=== PATIENT | female | born 1980 | race Two or more races ===

== ENCOUNTER 2025-06-26 20:46 | Emergency (ER) | payer SELFPAY ==
[2025-06-26 21:01] VITALS: BP 158/94; PULSE 104; RESP 18; TEMP 36.9; O2SAT 99
--- NOTE | 2025-06-26 21:12 | PD.EDDENTL ---
ED Dental RME/HPI General Chief complaint: General Adult/Misc Complain Stated complaint: MOUTH /DENTAL PAIN Time Seen by Provider: 06/26/25 21:02 Arrival date/time: 06/26/25 20:46 RME / HPI RME / HPI Narrative: See [facility] for Dr. Beltrán's HPI Documentation. Related Data Home Medications ?Medication ?Instructions ?Recorded ?Confirmed esomeprazole magnesium 20 mg 20 mg PO QDAY ##0 01/05/17 capsule,delayed release (Nexium) Previous Rx's ?Medication ?Instructions ?Recorded ibuprofen 600 mg tablet 600 mg PO Q6HR PRN PAIN #30 tabs 01/05/17 tramadol 50 mg tablet (Ultram) 50 mg PO Q4HR PRN pain #14 tabs 01/05/17 acetaminophen 300 mg-codeine 30 mg 2 tab PO Q8H PRN pain #20 tabs 06/26/25 tablet amoxicillin 875 mg-potassium 1 tab PO BID #20 tabs 06/26/25 clavulanate 125 mg tablet Allergies Allergy/AdvReac Type Severity Reaction Status Date / Time No Known Allergies Allergy Verified 06/26/25 20:46 Review of Systems Review of Systems Systems Reviewed: All systems reviewed, normal except as documented Past Medical History Social History SMOKING STATUS: Never smoker ED Exam Narrative Physical exam: See [facility] for Dr. Beltrán's Physical Exam Documentation. Course Quality Measures none Orders Category Date Time Status ACETAMINOPHEN w/COD 300-30 [Tylenol w/Cod #3] Med 06/26/25 21:09 Discontinued 2 tab PO X1 ONE Amoxicillin/Pot Clav 875 [Augmentin 875] Med 06/26/25 21:09 Discontinued 1 tab PO X1 ONE Ibuprofen Tab [Motrin Tab] Med 06/26/25 21:09 Discontinued 800 mg PO X1 ONE predniSONE Med 06/26/25 21:09 Discontinued 60 mg PO X1 ONE Vital Signs Vital signs: Vital Signs Temperature 98.5 F 06/26/25 21:01 Pulse Rate 104 H 06/26/25 21:01 Respiratory Rate 18 06/26/25 21:01 Blood Pressure 158/94 H 06/26/25 21:01 Pulse Oximetry (%) 99 06/26/25 21:01 Oxygen Delivery Method Room Air 06/26/25 21:01 Dental / Oral MDM Narrative MDM Narrative:: This section includes all my notes and documentations, including HPI, PE, and ED course. Kale Beltrán MD HPI: 45 y/o female presents c/o right-sided dental pain and swelling x 1 month. No fever or chills. No other complaints. ROS: All negative except as documented in HPI. Physical Exam: General: Alert and oriented. Eyes: Conjunctivae and lids clear. ENT: No nasal congestion. Pharynx normal. TM normal bilaterally. In the mouth, diffuse dental caries noted. Right upper and lower gums significantly edematous and erythematous. No fluctuant mass palpable. Neck: Supple. Lungs: No respiratory distress. Skin: Warm and dry. Neuro: Alert and oriented X 3. At this point, diagnoses include: Infected Dental Caries Treatment here included: Tylenol with Codeine #3 X 2 Augmentin 875 mg Motrin 800 mg Prednisone 60 mg She started to feel better. Recommended outpatient dental care. Based on my best medical judgment, made decision no further evaluation or treatment indicated at this time. Patient understands and agrees to the discharge instructions customized and printed, see below. Discharge Instructions from Dr. Beltrán: --After evaluation, your dental pain is due to severe underlying infection.?? --Take Augmentin to help kill the germs causing your infection.? --Ibuprofen 800 mg every 6-8 hours today and tomorrow to decrease inflammation then as needed. --Tylenol with codeine for severe pain. --Most importantly, see a dentist of your choice on 06/28/2025 for definitive treatment you need not available in the ER.? You will need to call dental offices in all surrounding towns to find a dentist who can see you and treat you right away.? ?Seek immediate medical care with fever or with any concerns. Kale Beltrán MD Patient data External records reviewed:: [facility] previous records (No recent ED records available for review) Clinical information provided by:: patient Social determinants that could affect healthcare access:: none Patient has the following chronic illnesses:: None reported How is presenting disease/condition affected by chronic disease/condition?: no chronic disease Evaluation data The following diagnostics were reviewed and interpreted by me:: other (specify) (N/A) Lab and/or radiology exams considered but not ordered:: None Interpretation Summary: None Medications / Prescriptions Medications or Prescriptions considered but not ordered:: None Medication administrations:: Medication Administration History Discontinued Medications Acetaminophen/Codeine Phosphate (Acetaminophen W/Cod 300-30 Tablet) 2 tab PO X1 ONE Stop: 06/26/25 21:10 Last Admin: 06/26/25 21:24 Dose: 2 tab Documented By: OA Amoxicillin/Clavulanate Potassium (Amoxicillin/Pot Clav 875 Tablet) 1 tab PO X1 ONE Stop: 06/26/25 21:10 Last Admin: 06/26/25 21:24 Dose: 1 tab Documented By: OA Ibuprofen (Ibuprofen Tab 400 Mg Tablet) 800 mg PO X1 ONE Stop: 06/26/25 21:10 Last Admin: 06/26/25 21:25 Dose: 800 mg Documented By: OA Prednisone (Prednisone 20 Mg Tablet) 60 mg PO X1 ONE Stop: 06/26/25 21:10 Last Admin: 06/26/25 21:26 Dose: Not Given Documented By: OA Non-Admin Reason: Patient Refused Tylenol with Codeine #3 X 2 Augmentin 875 mg Motrin 800 mg Prednisone 60 mg Consultations Consultation(s) initiated? (list below): No Diagnosis Dental Differential Diagnosis: gingival abscess, dental caries, toothache, dental abscess, fracture of tooth and aphthous ulcer Most likely diagnosis given after review of the tests above:: Infected dental caries Admission Indicated Admission indicated?: not indicated Explain why admission is indicated or not indicated:: With significant improvement and no condition needing emergent intervention, there was no indication for admission. Admission Request Was there a request for admission?: No Disposition Plan Disposition Plan: Discharge Discharge Attestation Discharge Attestation: The patient and all family members were given an opportunity to ask questions and understood the discharge instructions. Discharge instructions specifically effects, indications for sooner follow up or return to the emergency department, and the expected course of current diagnosis. Patient condition: Stable Discharge Plan Plan Patient Disposition: HOME (Self Care) Prescriptions/Referrals Prescriptions/Med Rec: New acetaminophen-codeine 300-30 mg tablet 2 tab PO Q8H MDD 6 PRN (Reason: pain) Qty: 20 0RF amoxicillin-pot clavulanate 875-125 mg tablet 1 tab PO BID Qty: 20 0RF No Action esomeprazole magnesium [Nexium] 20 MG capsule,delayed release(DR/EC) 20 mg PO QDAY Qty: 0 Patient Comments: TO SUPPRESS GASTRIC ACID SECRETION tramadol [Ultram] 50 MG tablet 50 mg PO Q4HR PRN (Reason: pain) Qty: 14 0RF Rx Instructions: FOR PAIN, NOT TO EXCEED 8 TABS IN 24 HRS ibuprofen 600 MG tablet 600 mg PO Q6HR PRN (Reason: PAIN) Qty: 30 0RF Problem List Clinical Impression: Infected dental caries Patient/Caregiver Discharge Instructions Education Materials: ED Dental Cavity, ED Dental Abscess Additional Instructions: Discharge Instructions from Dr. Beltrán: --After evaluation, your dental pain is due to severe underlying infection.?? --Take Augmentin to help kill the germs causing your infection.? --Ibuprofen 800 mg every 6-8 hours today and tomorrow to decrease inflammation then as needed. --Tylenol with codeine for severe pain. --Most importantly, see a dentist of your choice on 06/28/2025 for definitive treatment you need not available in the ER.? You will need to call dental offices in all surrounding towns to find a dentist who can see you and treat you right away.? ?Seek immediate medical care with fever or with any concerns. Instrucciones de gurpreet del Dr. Beltrán: --Despu?s de la evaluaci?n, [place] dolor dental se debe a [place] infecci?n subyacente grave. --[place] Augmentin para ayudar a eliminar los g?rmenes que causan la infecci?n. --Ibuprofeno 800 mg cada 6-8 horas hoy y ma?mukesh para reducir la inflamaci?n, seg?n sea necesario. --Tylenol con code?na para el dolor intenso. --Lo m?s importante es que consulte con un dentista de [place] elecci?n el 03/02/2025 para recibir el tratamiento definitivo que necesita, ya que no est? disponible en urgencias. Deber? llamar a los consultorios dentales de todos los [place] para encontrar un dentista que pueda atenderlo y tratarlo de inmediato. --Busque atenci?n m?dica inmediata si tiene fiebre o cualquier inquietud. Print Language: Cambodian Stand Alone Forms: Mini Award Info., Patient Portal Info Letter
[2025-06-26] MEDS: AMOXICILLIN/POT CLAV 875 TABLET 1 TAB PO (21:24)
[2025-06-26] MEDS: ACETAMINOPHEN w/COD 300-30 TABLET 2 TAB PO (21:24)
[2025-06-26] MEDS: IBUPROFEN TAB 400 MG TABLET 800 MG PO (21:25)
== END 2025-06-26 22:10 | disposition home or self-care (01) ==
LOC: SERX 21:59
PROVIDERS: Emergency Provider Emergency Medicine; PCP Family Medicine
DX: K02.9 Dental caries, unspecified (principal)
CPT/HCPCS: 99283; A9270

== ENCOUNTER 2025-07-25 17:51 | Emergency (ER) | payer SELFPAY ==
[2025-07-25 18:01] VITALS: BP 144/95; PULSE 119; RESP 19; TEMP 36.7; O2SAT 100; BMI 33.3
--- NOTE | 2025-07-25 18:38 | XR_ITS ---
EXAMINATION: PA chest single view TECHNIQUE: 1. Upright PA chest single view Date and time: July 25, 2025, 1902 hours, comparison 03/26/2016 INDICATIONS: Chest pain today. FINDINGS: Mild prominence left ventricle Ectatic thoracic aorta. No pneumonia or pulmonary edema. Intact osseous structures IMPRESSION: No active disease
--- NOTE | 2025-07-25 18:38 | EKG_ITS ---
[facility] Test Date: 2025-07-25 Pat Name: TRINIDAD HUTTON Department: Room: - Gender: Female Residential Service Technician: : 1980 Requested By: Patricio Kirk Order Number: [id number] Reading MD: Patricio Kirk Measurements Intervals [place] Rate: 108 P: 12 [place]: 160 QRS: -12 QRSD: 76 T: 2 QT: 336 QTc: 451 Interpretive Statements SINUS TACHYCARDIA POSSIBLE LEFT ATRIAL ENLARGEMENT [-0.1mV P-WAVE IN V1/V2] POSSIBLE LEFT VENTRICULAR HYPERTROPHY [VOLTAGE CRITERIA PLUS LAE OR QRS WIDENING] POSSIBLE ANTERIOR MYOCARDIAL INFARCTION , PROBABLY OLD [30 ms Q WAVE IN V3/V4, OR R < 0.2 mV IN V4] No previous ECG available for comparison /store/S0/[id number]/ecg/[id number].pdf
[2025-07-25 19:31] LABS: Basophils # (Auto) 0.1 Thou/mm3 (0.0-0.2); Basophils % (Auto) 1 % (0-2.5); Eosinophils # (Auto) 0.0 Thou/mm3 (0.0-0.5); Eosinophils % (Auto) 0 % (0-10); Hematocrit 32.5 % (36.0-46.0); Hemoglobin 9.7 g/dL (12.0-16.0); Immature Granulocytes Auto 0.04 Thou/mm3 (0.00-0.00); Lymphocytes # (Auto) 2.0 Thou/mm3 (1.0-4.8); Lymphocytes % (Auto) 15 % (10-50); Mean Corpuscular HGB Conc 29.8 g/dl (31.0-37.0); Mean Corpuscular Hemoglobin 20.9 pg (25.0-35.0); Mean Corpuscular Volume 70 fL (80-100); Monocytes # (Auto) 0.7 Thou/mm3 (0.0-0.8); Monocytes % (Auto) 6 % (0-12); Neutrophils # (Auto) 10.6 Thou/mm3 (1.8-7.7); Neutrophils % (Auto) 79 % (37-80); Nucleated Red Blood Cell # 0.00 Thou/mm3 (0.00-0.00); Nucleated Red Blood Cell % 0 /100 WBC (0); Platelet Count 405 Thou/mm3 (140-440); RDW Standard Deviation 43.8 fL (36.4-46.3); Red Blood Count 4.65 Miln/mm3 (4.00-5.20); White Blood Count 13.4 Thou/mm3 (3.6-11.0)
[2025-07-25 19:49] LABS: Path Review Blood Smear Sent to Pathologist
[2025-07-25 19:50] LABS: B-Type Natriuretic Peptide < 20 pg/mL (0-100)
[2025-07-25 19:51] LABS: Alanine Aminotransferase 10 U/L (10-49); Albumin, Serum 5.0 gm/dL (3.5-5.0); Albumin/Globulin Ratio 1.5 (1.2-2.2); Alkaline Phosphatase 113 U/L (46-116); Anion Gap 12 (7-16); Aspartate Amino Transferase 16 U/L (0-34); BUN/Creatinine Ratio 12 Ratio (12-20); Bilirubin,Total 0.4 mg/dL (0.3-1.2); Blood Urea Nitrogen 6 mg/dL (9-23); Calcium 9.3 mg/dL (8.3-10.6); Calcium (Corrected) 9.3 mg/dL (8.5-10.1); Carbon Dioxide 23.7 mMol/L (20.0-31.0); Chloride 104 mMol/L (98-107); Creatinine (Component) 0.5 mg/dL (0.6-1.3); Estimated Creatinine Clearance 112.6 mL/min (>60); Globulin 3.3 gm/dL (2.3-3.5); Glucose 149 mg/dL (74-106); Lipase 26 U/L (12-53); Osmolality,Calculated 280 (275-295); Potassium 3.7 mMol/L (3.4-5.1); Sodium 140 mMol/L (136-145); Total Protein 8.3 gm/dL (5.7-8.2); Troponin I < 0.002 ng/mL (0.0-0.045); eGFR > 60 See Note
[2025-07-25 20:20] LABS: Collection Type, Urine Clean Catch
[2025-07-25 20:28] LABS: HCG Qualitative,Urine Negative
[2025-07-25 20:33] LABS: Bilirubin,Urine Negative (Negative); Blood,Urine 3+ (Negative); Clarity,Urine Turbid (Clear/Hazy); Color,Urine Lt-Yellow (Lt Yel-Yel); Glucose, Urine Negative (Negative); Ketones,Urine Negative (Negative); Leukocyte Esterase,Urine Positive (Negative); Nitrite,Urine Negative (Negative); PH,Urine 6.0 (5.0-7.0); Protein,Urine Trace (Neg - Trace); RBC,Urine 1689 /hpf (0-3); Specific Gravity,Urine 1.012 (1.001-1.035); Squamous Epithelial Cell,Urine 1 /hpf (0-5); Urobilinogen,Urine Negative mg/dL (0.0-1.0); WBC,Urine 17 /hpf (0-5)
--- NOTE | 2025-10-30 06:16 | EDNOTE_ITS ---
ED Chest Pain RME/HPI General Chief Complaint: Chest Pain Stated Complaint: CHEST PAIN Time Seen by Provider: 07/25/25 18:36 Arrival date/time: 07/25/25 17:51 This is a case of 45-year-old female with no medical history came in in the emergency room due to on and off pain mixed down and got up her sharp no short ness of breath no blood radiation patient also noted to have pain on the lower both dental with mild redness of the face Limitations: no limitations Related Data Home Medications ?Medication ?Instructions ?Recorded ?Confirmed esomeprazole magnesium 20 mg 20 mg PO QDAY ##0 7 capsule,delayed release (Nexium) Previous Rx's ?Medication ?Instructions ?Recorded ibuprofen 600 mg tablet 600 mg PO Q6HR PRN PAIN #30 tabs 01/05/17 tramadol 50 mg tablet (Ultram) 50 mg PO Q4HR PRN pain #14 tabs 01/05/17 amoxicillin 875 mg-potassium 1 tab PO BID #20 tabs 01/15 clavulanate 125 mg tablet clindamycin HCl 300 mg capsule 300 mg PO Q6H #40 caps 07/25/25 (Cleocin HCl) ibuprofen 800 mg tablet 800 mg PO Q8H PRN pain #20 t abs 07/25/25 Allergies Allergy/AdvReac Type Severity Reaction Status Date / Time No Known Allergies Allergy Verified 07/25/25 17:54 Review of Systems Review of Systems Systems Reviewed: All systems reviewed, normal except as documented Past Medical History Social History SMOKING STATUS: Never smoker ED Exam General Limitations: Present no limitations General appearance: Present alert and in no apparent distress Head Head exam: Present atraumatic Eye Eye exam: Present normal appearance, PERRL and EOMI ENT ENT exam: Present normal exam, normal oropharynx, mucous membranes moist and other (Noted mild tenderness on right thumb depressor 4th and 3rd with mild swelling of the thumb but no obvious hide cellulitis noted on the right mandible no tooth avulsion noted to the decaying milk but) Neck Neck exam: Present normal inspection, full ROM and trachea midline; Absent tenderness, meningismus or lymphadenopathy Chest Chest inspection: Present normal inspection and symmetric chest wall rise; Absent tenderness Respiratory Respiratory exam: Present normal lung sounds bilaterally; Absent respiratory distress, wheezes, stridor, accessory muscle use or prolonged expiratory phase Cardiovascular Cardiovascular exam: Present regular rate, normal rhythm and normal heart sounds; Absent bradycardia, tachycardia, irregular rhythm, systolic murmur or diastolic murmur Abdominal Exam Abdominal exam: Present soft and normal bowel sounds Extremities Exam Extremities exam: Present normal inspection and full ROM Back Exam Back exam: Present normal inspection and full ROM Neurological Exam Neurological exam: Present alert, oriented X3 and CN II-XII intact Psychiatric Psychiatric exam: Present normal affect and normal mood Skin Skin exam: Present warm, dry, intact and normal color Course Quality Measures none Orders Category Date Time Status EKG (ED ONLY) *Do not use* NOW Care 07/25/25 18:38 Completed EKG (ED Only) Stat Exams 07/25/25 18:38 Draft XR chest 1V Stat Exams 07/25/25 18:38 Completed BNP [B-Type Natriuretic Peptide] Stat Lab 07/25/25 19:23 Completed CBC Stat Lab 07/25/25 19:23 Completed Comprehensive Metabolic Panel Stat Lab 07/25/25 19:23 Completed HCG Qualitative,Urine Stat Lab 07/25/25 19:54 Completed Lipase Stat Lab 07/25/25 19:23 Completed Path Review Blood Smear Stat Lab 07/25/25 19:23 Completed Troponin I Stat Lab 07/25/25 19:23 Completed Urinalysis Stat Lab 07/25/25 19:54 Completed HYDROcodone*/APAP 5/325 [[place] 5/325] Med 07/25/25 21:01 Discontinued 1 tab PO X1 ONE cefTRIAXone [Rocephin] 1,000 mg Med 07/25/25 21:01 Discontinued Lidocaine 1% Vial 20 ml [Xylocaine 1% 20 ML] 2.1 ml IM X1 Vital Signs Vital signs: Vital Signs Temperature 98.1 F 07/25/25 18:01 Pulse Rate 119 H 07/25/25 18:01 Respiratory Rate 19 07/25/25 18:01 Blood Pressure 144/95 H 07/25/25 18:01 Pulse Oximetry (%) 100 07/25/25 18:01 Oxygen Delivery Method Room Air 07/25/25 18:01 Vital signs stable Chest Pain MDM Narrative MDM Narrative:: Patient was discharged with comfortable condition walking with stable gait. Patient verbalized no further complains explained diagnosis and answered patient question. Patient is comfortable with the proposed management plan including the need to follow up with his/her primary care physician and any specialist if applicable Discussed patient for any urgent condition or worsening sx, He/She needed to go to emergency room immediately or call 911. Patient acknowledge the responsibility to follow up as instructed and to monitor her/his symptoms. For any persistence of the symptoms for more than 3-5 days return precaution advised. Discussed the result of the test and was given printed discharge instruction Patient data External records reviewed:: [facility] previous records Clinical information provided by:: patient Social determinants that could affect healthcare access:: none Patient has the following chronic illnesses:: none How is presenting disease/condition affected by chronic disease/condition?: no chronic disease Evaluation data The following diagnostics were reviewed and interpreted by me:: lab results, radiology exam(s) and EKG tracing(s) Lab and/or radiology exams considered but not ordered:: reviewed Interpretation Summary: reeviewed Medications / Prescriptions Medications or Prescriptions considered but not ordered:: given Medication administrations:: Medication Administration History Discontinued Medications Hydrocodone Bitart/Acetaminophen (Hydrocodone/Apap 5/325 Tablet) 1 tab PO X1 ONE Stop: 07/25/25 21:02 Last Admin: 07/25/25 22:24 Dose: Not Given Documented By: BD Non-Admin Reason: Patient Refused Ceftriaxone Sodium 1,000 mg/ (Lidocaine HCl 2.1 ml) 0 mg IM X1 ONE Stop: 07/25/25 21:02 Last Admin: 07/25/25 22:24 Dose: Not Given Documented By: BD Non-Admin Reason: Patient Refused given Consultations Consultation(s) initiated? (list below): No Diagnosis Chest Pain Differential Diagnosis: atypical chest pain, costochondritis and chest pain Most likely diagnosis given after review of the tests above:: chets pain dental abscess wiht facial cellulitis Admission Indicated Admission indicated?: not indicated Explain why admission is indicated or not indicated:: not idncated Admission Request Was there a request for admission?: No Admission Attestation Admission request attestation: not indicated Disposition Plan Disposition Plan: Discharge Discharge Attestation Discharge Attestation: The patient and all family members were given an opportunity to ask questions and understood the discharge instructions. Discharge instructions specifically effects, indications for sooner follow up or return to the emergency department, and the expected course of current diagnosis. Patient condition: Stable Discharge Plan Plan Patient Disposition: HOME (Self Care) Patient condition on transfer: Stable Prescriptions/Referrals Prescriptions/Med Rec: New clindamycin HCl [Cleocin HCl] 300 mg capsule 300 mg PO Q6H Qty: 40 0RF ibuprofen 800 mg tablet 800 mg PO Q8H PRN (Reason: pain) Qty: 20 0RF No Action esomeprazole magnesium [Nexium] 20 MG capsule,delayed release(DR/EC) 20 mg PO QDAY Qty: 0 Patient Comments: TO SUPPRESS GASTRIC ACID SECRETION tramadol [Ultram] 50 MG tablet 50 mg PO Q4HR PRN (Reason: pain) Qty: 14 0RF Rx Instructions: FOR PAIN, NOT TO EXCEED 8 TABS IN 24 HRS ibuprofen 600 MG tablet 600 mg PO Q6HR PRN (Reason: PAIN) Qty: 30 0RF amoxicillin-pot clavulanate 875-125 mg tablet 1 tab PO BID Qty: 20 0RF Referrals: Rajinder Hernandez MD [Primary Care Provider, Family Practice] - In 1 week Problem List Clinical Impression: Chest pain of unknown etiology, Tooth abscess, Cellulitis of face, Urinary tract infection Patient/Caregiver Discharge Instructions Education Materials: Urinary Tract Infections in Women, ED Cellulitis, ED Chest Pain, Uncertain Cause, ED Tooth Abscess Additional Instructions: Follow-up with your primary care physician in 2 days for reevaluation and to be referred to tin whiz machine operator for further evaluation and treatment of chest pain for possible echocardiogram stress test and Holter monitor worsening symptoms recurrence persistent or any emergent concern call 911 or go to the nearest emergency room take your medication as directed finish the course of antibiotic it is very important to see a dentist in 2 days for reevaluation and possible dental procedure oral care is advised keep hydrated Print Language: Guinean Stand Alone Forms: Mini Award Info., Patient Portal Info Letter PA/SOFTWARE ENGINEERING SPECIALIST Supervising Physician PA/SOFTWARE ENGINEERING SPECIALIST Supervising Physician: Dr. Beltrán
== END 2025-07-25 22:28 | disposition home or self-care (01) ==
PROVIDERS: Nurse Practitioner Family; Emergency Provider Emergency Medicine; PCP Family Medicine
DX: R07.9 Chest pain, unspecified (principal); K04.7 Periapical abscess without sinus; L03.211 Cellulitis of face; N39.0 Urinary tract infection, site not specified
CPT/HCPCS: 36415; 71045; 80053; 81001; 81025; 83690; 83880; 84484; 85025; 93005; 99283; J0696; J3490; A9270